=== PATIENT | male | born 1955 | race Hispanic/Latino ===

== ENCOUNTER 2025-06-02 16:23 | Emergency (ER) | payer OTHER ==
[~2025-06-02] VITALS: Ht 165.1 cm; Wt 93.9 kg
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
--- NOTE | 2025-06-02 17:27 | HMCIMG ---
EXAM: Left rib radiograph 3 view; Chest radiograph 1 view HISTORY: Fall COMPARISON: None TECHNIQUE: PA view of the chest; 3 views of the ribs FINDINGS: No focal consolidations. Chronic interstitial changes. No large pleural effusion. Small left apical pneumothorax. Normal cardiac silhouette. Tortuous calcified aorta. Degenerative changes of the spine. Left posterior lateral sixth and seventh rib fractures. IMPRESSION: Small left apical pneumothorax. Left posterior lateral sixth and seventh rib fractures. /[place]
[2025-06-02 18:35] VITALS: BP 139/83; PULSE 70; RESP 20; TEMP 98.1; O2SAT 97
[2025-06-02] MEDS ORDERED: ACET-2079 PO (18:59)
== END 2025-06-02 19:04 | disposition home or self-care (01) ==
LOC: EDH 16:23
DX: S22.42XA Multiple fractures of ribs, left side, initial encounter for closed fracture (principal); S27.0XXA Traumatic pneumothorax, initial encounter; W11.XXXA Fall on and from ladder, initial encounter; Y93.89 Activity, other specified; Y92.89 Other specified places as the place of occurrence of the external cause; Y99.8 Other external cause status
CPT/HCPCS: 71101; 99283